=== PATIENT | male | born 1985 | race Caucasian/White ===

== ENCOUNTER → 2021-07-08 12:58 | Outpatient (CLI) | payer BC, SELFPAY ==
--- NOTE | ~2021-07-08 | MR_ITS ---
EXAMINATION: MR hip RT wo con DATE: 07/08/2021 13:46 INDICATION: Chronic right hip pain TECHNIQUE: Magnetic resonance imaging (MRI) of the right hip was performed without intravenous contr ast. Sequences included full-field axial PD-weighted FS FSE and T1-weighted FSE, coronal of the pelvi s with PD-weighted FS FSE, T2-weighted FSE and T1-weighted FSE, small field of view of the right hip with axial PD-weighted FS FSE, sagittal PD-weighted FS FSE, coronal PD-weighted FS FSE and coronal T2 weighted FSE. Additional radial T1-weighted FGR oriented orthogonal to the acetabular rim were obt ained for evaluation of the labrum. COMPARISON: None FINDINGS: Bones/labrum/cartilage: Alignment is normal. No fracture, avascular necrosis or pathologic marrow replacing process. There i s a tear of the 2:00 to 12:00 position of the anterosuperior right acetabular labrum. Nonuniform mild partial-thickness cartilage loss with smooth chondral surface and without degenerative subchondral c hanges. Right supra-acetabular small low signal intensity bone island. Fluid: Symmetric physiologic amount of fluid within both hip joints. Soft tissues: Small region of fatty atrophy at the proximal right rectus femoris muscle likely sequela of prior ins ult. Otherwise normal and symmetric muscle bulk and signal in the pelvis and visualized proximal thig hs. The iliopsoas, gluteal and proximal hamstring tendons are normal. Limited evaluation of visceral organs of the pelvis is unremarkable. No pathologically enlarged pelvic/inguinal lymphadenopathy. IMPRESSION: 1. Mild left hip osteoarthritis with anterosuperior labral tear. 2. Small region of focal fatty atrophy along the proximal right rectus femoris muscle likely sequela of chronic insult. Reviewed, dictated and finalized at location A.
== END ==
PROVIDERS: PCP Student in an Organized Health Care Education/Training Program; Visit Provider Student in an Organized Health Care Education/Training Program
DX: M16.12 Unilateral primary osteoarthritis, left hip (principal)
CPT/HCPCS: 73721